=== PATIENT | female | born 1985 | race Caucasian/White ===

== ENCOUNTER 2016-08-18 20:52 | Emergency (ER) | payer OTHER ==
--- NOTE | 2016-08-18 23:24 | DIAGNOSTIC IMAGING REPORT ---
PROCEDURE: ABDOMEN/PELVIS WITH CONTRAST CLINICAL INDICATION: ABDOMINAL PAIN TECHNIQUE: 125 ml of Isovue 300 were injected intravenously and axial images were obtained of the abdomen and pelvis with sagittal and coronal reformations. COMPARISON: None. FINDINGS: ABDOMEN: Surgical changes of gastric sleeve formation. No perigastric fluid or inflammation. Mild diffuse periportal edema. Otherwise normal liver. Clear lung bases. Normal sized heart. No hiatal hernia. The gallbladder, adrenal glands, kidneys, pancreas and spleen are normal. The abdominal aorta is normal in its course and caliber. No atherosclerosis. There are no suspicious calcifications, retroperitoneal adenopathy or masses. The stomach, upper bowel loops, and mesentery are normal. Intact anterior abdominal wall. No free fluid or inflammation. PELVIS: The appendix and pelvic small bowel loops are normal. Normal amount of stool in the colon and rectum. The ovaries demonstrate multiple follicles bilaterally and are mildly enlarged measuring 4.4 cm on the right and 4.8 cm on the left. The uterus is deviated towards the right. The urinary bladder, and pelvic vessels are normal. No adenopathy, free fluid, or pelvic mass. Intact osseous structures. IMPRESSION: 1. No acute process. 2. Mild periportal edema, nonspecific. Correlate with LFTs. 3. Mildly enlarged, multifollicular ovaries without adjacent free fluid, likely physiologic. Correlate with any lower abdominal/pelvic pain. 4. Status post gastric sleeve formation. 5. Findings called to the emergency room. All CT scans at this facility use dose modulation, iterative reconstruction, and/or weight-based dosing when appropriate to reduce radiation dose to as low as reasonably achievable.
--- NOTE | 2016-08-18 23:39 | ED CLINICAL REPORT ---
Clinical Report - Physicians/Mid Levels [facility] [address] [place] [address] 08/18/2016 20:53 Patient: KATIE MOCTEZUMA Time Seen: 2110. Arrived- By private vehicle. Historian- patient. HISTORY OF PRESENT ILLNESS Chief Complaint: VOMITING. This started past 2 weeks and is still present (unchanged). It was abrupt in onset and has been intermittent but is not gone now. No recent travel. She has had nausea and vomiting. No black stools, bloody stools, abdominal pain, history of possible bad food exposure or known contact with a sick individual. Has not recently been camping or on antibiotics. The illness is described as moderate. Similar symptoms previously: None. Recent medical care: Not recently seen/assessed. REVIEW OF SYSTEMS No fever. All systems otherwise negative, except as recorded above. PAST HISTORY See nurses notes. Medications: Ranitidine HCl Oral. Multivitamin Oral. Promethazine HCl Oral, 4x a day. TraZODone HCl Oral 50 mg, daily. Allergies: Adhesive. Codeine. Paxil. SOCIAL HISTORY Never smoker. No alcohol use or drug use. No recent travel. Is a local resident. ADDITIONAL NOTES The nursing notes have been reviewed. PHYSICAL EXAM Vital Signs: 08/18/2016 20:59 BP: 123/65. HR: 70. RR: 18. O2 saturation: 98%. Temp: 98.1 F. Pain level now: 0/10. Blood pressure normal. Oxygen saturation normal. Appearance: Alert. Oriented X3. No acute distress. (non-toxic.). Eyes: Pupils equal, round and reactive to light. Eyes normal inspection. No scleral icterus. ENT: Ears normal. Nose normal. Pharynx normal. Neck: Normal inspection. Neck supple. CVS: Normal heart rate and rhythm. Heart sounds normal. Pulses normal. Respiratory: No respiratory distress. Breath sounds normal. No rales, rhonchi or wheezes. Abdomen: Soft and nontender. Bowel sounds normal. Skin: Skin warm and dry. Normal skin color. No rash. Normal skin turgor. Extremities: Extremities exhibit normal ROM. No lower extremity edema. LABS, X-RAYS, AND EKG Abdominal CT: PROCEDURE: ABDOMEN/PELVIS WITH CONTRAST CLINICAL INDICATION: ABDOMINAL PAIN TECHNIQUE: 125 ml of Isovue 300 were injected intravenously and axial images were obtained of the abdomen and pelvis with sagittal and coronal reformations. COMPARISON: None. FINDINGS: ABDOMEN: Surgical changes of gastric sleeve formation. No perigastric fluid or inflammation. Mild diffuse periportal edema. Otherwise normal liver. Clear lung bases. Normal sized heart. No hiatal hernia. The gallbladder, adrenal glands, kidneys, pancreas and spleen are normal. The abdominal aorta is normal in its course and caliber. No atherosclerosis. There are no suspicious calcifications, retroperitoneal adenopathy or masses. The stomach, upper bowel loops, and mesentery are normal. Intact anterior abdominal wall. No free fluid or inflammation. PELVIS: The appendix and pelvic small bowel loops are normal. Normal amount of stool in the colon and rectum. The ovaries demonstrate multiple follicles bilaterally and are mildly enlarged measuring 4.4 cm on the right and 4.8 cm on the left. The uterus is deviated towards the right. The urinary bladder, and pelvic vessels are normal. No adenopathy, free fluid, or pelvic mass. Intact osseous structures. IMPRESSION: 1. No acute process. 2. Mild periportal edema, nonspecific. Correlate with LFTs. 3. Mildly enlarged, multifollicular ovaries without adjacent free fluid, likely physiologic. Correlate with any lower abdominal/pelvic pain. 4. Status post gastric sleeve formation. Study type: abdomen and pelvis. Abdominal CT performed with IV contrast. The study was independently viewed by me, interpreted by the radiologist and discussed with the radiologist. Laboratory Tests: UA-Culture if indicated: (AVERY: 08/18/2016 21:21) ( MsgRcvd 08/18/2016 21:59) Final results Test Result Flag Units (Reference) URINE COLOR YELLOW URINE APPEARANCE CLEAR URINE GLUCOSE NEGATIVE (NEGATIVE) URINE BILIRUBIN NEGATIVE (NEGATIVE) URINE KETONE TRACE (NEGATIVE) URINE SPECIFIC GRAVITY 1.010 (1.010-1.030) URINE PH 6.0 (5.0-8.0) URINE PROTEIN NEGATIVE (NEGATIVE) URINE UROBILINOGEN 0.2 EU/dL (0.2-1.0) URINE NITRITE NEGATIVE (NEGATIVE) URINE BLOOD NEGATIVE (NEGATIVE) URINE LEUK ESTERASE NEGATIVE (NEGATIVE) URINE RBC NONE SEEN rbc/hpf (0-1) URINE WBC 0-1 wbc/hpf (0-1) URINE EPITHELIAL CELLS 1-3 EPI/hpf (0-5) URINE BACTERIA FEW (1+) (NONE SEEN) URINE COMMENT CULT NOT INDICATED 1+ MUCUSURINE CULTURES ARE SET-UP BASED ON THE FOLLOWING CRITERIA:POSITIVE NITRITEPOSITIVE LEUKOCYTE ESTERASEGREATER THAN 10 WHITE BLOOD CELLSMODERATE (2+) OR GREATER BACTERIA Urine: (AVERY: 08/18/2016 21:21) ( [facility] 08/18/[facility] 21:40) Final results Test Result Flag Units (Reference) URINE NEGATIVE CBC w Diff: (AVERY: 08/18/2016 21:21) ( [facility] 08/18/2016 21:44) Final results Test Result Flag Units (Reference) WHITE BLOOD COUNT 5.8 K/uL (4.5-11.5) RED BLOOD COUNT 4.16 M/uL (4.00-5.20) HEMOGLOBIN 12.5 gm/dL (12.0-16.0) HEMATOCRIT 37.4 % (36.0-46.0) MEAN CELL VOLUME 90 fL (80-100) MEAN CORPUSCULAR HGB 30 pg (26-34) MEAN CORPUSCULAR HGB CONC 33 g/dL (31-37) RED CELL DISTRIBUTION WIDTH 12.6 % (11.6-14.8) PLATELET COUNT 201 K/uL (150-400) NEUTROPHIL % 47.4 L % (50-75) LYMPH % 43.9 H % (25-40) MONO % 6.5 % (3-14) EOSINOPHIL % 1.9 % (0-4) BASOPHIL % 0.3 % (0-2) CMP: (AVERY: 08/18/2016 21:21) ( [facility] 08/18/2016 21:45) Final results Test Result Flag Units (Reference) GLUCOSE 89 mg/dL (70-110) BUN 10 mg/dL (7-18) CREATININE 0.7 mg/dL (0.6-1.3) Estimated GFR >60 mL/min Estimated GFR- >60 mL/min Note: Persistent reduction over 3 months in eGFR<60 mL/min/1.73 m2 defines CKD. Patients with eGFR values>=60 mL/min/1.73 m2 may also have CKD if evidence ofpersistent proteinuria. Additional information may be foundat [email or web address].org. SODIUM 140 mmol/L (136-145) POTASSIUM 3.6 mmol/L (3.5-5.1) CHLORIDE 104 mmol/L (98-107) CARBON DIOXIDE 29 mmol/L (21-32) CALCIUM 8.5 mg/dL (8.5-10.1) TOTAL PROTEIN 7.5 g/dL (6.4-8.2) ALBUMIN 4.2 g/dL (3.3-5.0) BILIRUBIN, TOTAL 0.4 mg/dL (0.0-1.0) ALKALINE PHOSPHATASE 63 U/L (46-116) AST (SGOT) 18 U/L (15-37) ALT (SGPT) 22 U/L (12-78) LIPASE 98 U/L (73-393) . PROGRESS AND PROCEDURES Course of Care: the patient is a pleasant 30-year-old female presented for evaluation of the nausea and vomiting without any abdominal pain. The patient is a bariatric surgery patient. Surgery had occurred about 6 years ago. Patient had contacted the clinic and was told to go to the emergency department. Patient will be evaluated with a CT scan of her abdomen and pelvis with contrast for evaluation of any signs of all of viscous perforation or surgical abdomen. Patient is agreeable to the treatment plan. No other abnormalities noted on patient's examination. The patient's workup was markable for the findings above. No findings noted on patient's CT scan of the abdomen and pelvis to indicate a surgical abdomen. No signs of cholecystitis. Laboratory studies are otherwise unremarkable. Because the patient had contacted her clinic and is a bar further input our advice on patient's symptoms here today. Was able to contact the on-call covering bariatric surgeon. No further recommendations made. Patient to follow up in clinic. Because of the patient's negative workup. Emergency department and no further recommendations made by the patient's covering bariatric surgeon, do not feel patient needs be admitted to the hospital require further emergency department workup/evaluation. Patient is resting in bed and in no acute distress. Symptoms here in the Emergency department. I discussion with the patient regards her symptoms in the emergency department including diagnosis, home care, follow-up, and return precautions. All questions have been answered. The patient expressed understanding of these instructions and was agreeable to them. Consult obtained. Chinmay Hamm (bariatric surgery). Phone consult only. Disposition: Discharged. Condition: good. CLINICAL IMPRESSION Vomiting with nausea. Moderate dehydration (acute). INSTRUCTIONS Warnings: GENERAL WARNINGS: Return or contact your physician immediately if your condition worsens or changes unexpectedly, if not improving as expected, or if other problems arise. SPECIFICALLY, return if you develop pain, fever, vomiting, the inability to keep fluids down, blood in vomitus, blood in diarrhea, fainting or lightheadedness. Your Current Medications: CONTINUE TAKING THE FOLLOWING MEDICATIONS: Multivitamin Oral. Promethazine HCl Oral : 4x a day. Ranitidine HCl Oral. TraZODone HCl Oral : 50 mg daily. Prescription Medications: Reglan 10 mg tablets: take 1 orally every 8 hours as needed for nausea or vomiting. Dispense twenty (20). No refills. Substitution is permissible. Follow-up: Return to the emergency department as needed. Follow up with your doctor in three days. Reason for referral: recheck today's concerns. Summary of care provided to patient via paper. Follow up with your doctor in three. Reason for referral: recheck today's concerns. Summary of care provided to patient via paper. Screening today revealed the patient's blood pressure to be in the normal range. The patient should follow up with a primary care provider for blood pressure management. Understanding of the discharge instructions verbalized by patient. (Electronically signed by James Castrejon Dr. 08/21/2016 8:18)
--- NOTE | 2016-08-18 23:39 | ED ORDER SUMMARY ---
..... Patient: KATIE MOCTEZUMA OrderSheet [facility] VisitID: [id number] [address] [place] [address] 30y, F Registration Date/Time: 08/18/2016 ORDER SHEET Weight: 63.5 kg (stated) Allergies: Adhesive, Codeine, Paxil GENERAL ORDERS: CT Abd/Pel w Cont (No) (N/A) Urgent (21:08/18/2016 Abbey Gregory) (Ack 21:25 [facility] Deputy County Clerk) (23:09 Duc) CBC w Diff Urgent (21:08/18/2016 Abbey Gregory) (21:24 DDavis R.N.) CMP Urgent (21:08/18/2016 Abbey Gregory) (21:24 DDavis R.N.) UA-Culture if indicated Urgent (21:08/18/2016 Abbey Gregory) (21:24 DDavis R.N.) Lipase Urgent (21:08/18/2016 Abbey Gregory) (21:24 DDavis R.N.) Urine Urgent (21:08/18/2016 Abbey Gregory) (21:24 DDavis R.N.) Pulse oximeter (21:08/18/2016 Abbey Gregory) (21:24 DDavis R.N.) MEDICATION ORDERS: IV FLUIDS: IV NS : initial bolus 1000 mL (1000 mL/hr), then none - for X1 (NOW) (21:08/18/2016 Abbey Gregory) (Ack 21:24 DDavis R.N.) (21:32 DDavis R.N.) Reglan IV 10 mg (NOW) (21:23 08/18/2016 Abbey Gregory) (Ack 21:24 DDavis R.N.) (21:33 DDavis R.N.) IV NS : initial bolus 1000 mL (1000 mL/hr), then none - for X1 (NOW) (22:17 08/18/2016 Abbey Gregory) (22:17 DDavis R.N.) ORDER SHEET NOTES: [Electronically signed by Sunil Brown R.N. (00:02 08/19/2016)] [Electronically signed by James Castrejon Dr. (08:18 08/21/2016)] [Electronically locked/signed by Sunil Brown R.N. (00:02 08/19/2016)]
--- NOTE | 2016-08-18 23:39 | ED NURSING NOTES ---
Clinical Report - Nurses [facility] [address] [place] [address] 08/18/2016 20:53 [id number] Triage time 20:59. Acuity: LEVEL 3. Chief Complaint: NAUSEA and VOMITING. Alert. No acute distress. BALTAZAR COMA SCORE: [place] Coma Scale: 15- eyes open spontaneously (4); best verbal response- oriented x 4 (5); best motor response- obeys commands (6). --21:03 Sunil Brown R.N. 20:59 08/18/16. BP: 123/65. HR: 70. RR: 18 (regular and unlabored). O2 saturation: 98% on room air. Temp: 98.1 F (oral). Pain level now: 0/10. --21:03 Sunil Brown R.N. Weight: 63.5 kg stated. Height/Length: 66 inches Per Patient. BMI: 22.6. --20:59 Sunil Brown R.N. Medications Multivitamin Oral. Promethazine HCl Oral, 4x a day. TraZODone HCl Oral 50 mg, daily. --21:00 Sunil Brown R.N. Ranitidine HCl Oral. --21:01 Sunil Brown R.N. Allergies Adhesive. Codeine. Paxil. --21:00 Sunil Brown R.N. History Arrived by private vehicle. Historian: patient. Accompanied by friend. Onset. (2 weeks). SOCIAL HX: Never smoker. No alcohol use or drug use. ( Denies SI/HI, states that she feels safe at home.). ABUSE ASSESSMENT: No report of abuse. SELF HARM ASSESSMENT: A self harm assessment was performed. The patient answered "no" to the question "Do you have thoughts of harming or killing yourself?" and "Are you here because you tried to hurt yourself?". FALL RISK ASSESSMENT: Fall risk assessment completed. No fall risk identified. FUNCTIONAL ASSESSMENT: Functional assessment: no impairments noted. LEARNING NEEDS ASSESSMENT: The learning needs assessment revealed no barriers. SKIN INTEGRITY ASSESSMENT: Skin integrity risk assessment completed. No skin integrity risk identified. --21:03 Sunil Brown R.N. PROBLEMS: Substance Abuse. Constipation. Nausea. Anxiety Reaction. Dehydration. Back Pain. --21:01 Sunil Brown R.N. ADDITIONAL SURGERIES: Endometerosis surg.. Gastric sleeve surgery. Sinus Surgery. --21:01 Sunil Brown R.N. Interventions ID band on patient. To treatment room. --21:03 Sunil Brown R.N. PHYSICAL ASSESSMENT Ambulatory to room. GENERAL / NEURO / PSYCH: Alert. Oriented X 4. Appears in no acute distress. Appears anxious. Does not appear in pain. HEENT: Mucous membranes are pink. RESPIRATORY: Respirations not labored. CVS: Capillary refill less than 2 seconds. GI / : Abdomen soft and nontender. SKIN: Skin is warm and dry. --21:04 Sunil Brown R.N. ( She states that she is drinking and able to keep fluids down). --21:05 Sunil Brown R.N. Ambulatory to room. GENERAL / NEURO / PSYCH: Alert. Oriented X 4. Appears in no acute distress. ( see triage assessment). HEENT: Mucous membranes are pink. RESPIRATORY: Respirations not labored. CVS: Capillary refill less than 2 seconds. GI / : Abdomen soft and nontender. SKIN: Skin is warm and dry. --00:01 Sunil Brown R.N. NURSING PROGRESS NOTES Patient gowned. Reassurance given. Two patient identifiers checked. Call light placed in reach. Side rails up x 1. Bed placed in lowest position. Brakes of bed on. Patient ready for evaluation- chart flagged. Patient waiting for evaluation. --21:04 Sunil Brown R.N. 21:22 08/18/2016 Site #1 started via IV in the right antecubital space with an 20g angiocath, with aseptic technique and good blood return; one attempt. Blood drawn: rainbow set. Labeled in the presence of the patient and sent to the lab. Saline lock flushed with 10 mL saline. --21:32 Sunil Brown R.N. 21:29 08/18/2016 Started bag #1 1000 mL IV Fluids IV NS (Saline); at 1000 mL/hr over 1 hour(s) via site #1. Allergies verified and confirmed 5 rights. IV patency established. IV site checked: no pain, redness, or swelling. IV flushed thoroughly pre- and post-medication administration. Completed per protocol. --21:32 Sunil Brown R.N. 21:30 08/18/2016 Reglan (Metoclopramide HCl) IVP 10 mg given over 2 minute(s) via site #1. Allergies verified and confirmed 5 rights. IV patency established. IV site checked: no pain, redness, or swelling. IV flushed thoroughly pre- and post-medication administration. IVP given by RN. --21:33 Sunil Brown R.N. 21:33 08/18/16. HR: 76. O2 saturation: 100% on room air. --21:33 Sunil Brown R.N. Pulse oximeter placed on patient. --21:33 Sunil Brown R.N. 22:08/18/2016 Started bag #1 1000 mL IV Fluids IV NS (Saline); at 1000 mL/hr over 1 hour(s) via site #1. Allergies verified and confirmed 5 rights. IV patency established. IV site checked: no pain, redness, or swelling. IV flushed thoroughly pre- and post-medication administration. Completed per protocol. --22:17 Sunil Brown R.N. 22:17 08/18/2016 IV Fluids IV NS Discontinued: completed. Total amount infused: 1000 mL. IV patency established. IV site checked: no pain, redness, or swelling. IV flushed thoroughly. --22:17 Sunil Brown R.N. ( Patient states that her nausea is "a little better".). --22:17 Sunil Brown R.N. 23:20 08/18/2016 IV Fluids IV NS Discontinued: completed. Total amount infused: 1000 mL. IV patency established. IV site checked: no pain, redness, or swelling. IV flushed thoroughly. --00:01 Sunil Brown R.N. DISPOSITION / DISCHARGE Departure time: 23:58. Condition at departure: stable. No learning barriers present. Discharge instructions provided and reviewed with the patient and spouse. Reviewed warnings. Reviewed medication(s) side effects, precautions, dosing and course information. Prescription(s) given to the patient. Treatments reviewed. Reviewed referrals for followup. Patient and spouse verbalized understanding. Written instructions provided in Somali. The patient was discharged home and accompanied by spouse and and pet amy. She left the Emergency Department ambulatory and via private vehicle. Spouse driving. --23:59 Sunil Brown R.N. 23:57 08/18/16. BP: 106/58. RR: 18 (regular and unlabored). Pain level now: 0/10. --23:59 Sunil Brown R.N. 23:50 08/18/16. HR: 71. O2 saturation: 99% on room air. --23:59 Sunil Brown R.N. Locked/Released at 08/19/2016 0:02 by Sunil Brown R.N.
--- NOTE | 2016-08-18 23:39 | ED ORDER SUMMARY ---
..... Patient: KATIE MOCTEZUMA OrderSheet [facility] VisitID: [id number] [address] [place] [address] 30y, F Registration Date/Time: 08/18/2016 ORDER SHEET Weight: 63.5 kg (stated) Allergies: Adhesive, Codeine, Paxil GENERAL ORDERS: CT Abd/Pel w Cont (No) (N/A) Urgent (21:08/18/2016 Abbey Gregory) (Ack 21:25 [facility] Employee Benefits Manager) (23:09 Duc) CBC w Diff Urgent (21:08/18/2016 Abbey Gregory) (21:24 DDavis R.N.) CMP Urgent (21:08/18/2016 Abbey Gregory) (21:24 DDavis R.N.) UA-Culture if indicated Urgent (21:08/18/2016 Abbey Gregory) (21:24 DDavis R.N.) Lipase Urgent (21:08/18/2016 Abbey Gregory) (21:24 DDavis R.N.) Urine Urgent (21:08/18/2016 Abbey Gregory) (21:24 DDavis R.N.) Pulse oximeter (21:08/18/2016 Abbey Gregory) (21:24 DDavis R.N.) MEDICATION ORDERS: IV FLUIDS: IV NS : initial bolus 1000 mL (1000 mL/hr), then none - for X1 (NOW) (21:08/18/2016 Abbey Gregory) (Ack 21:24 DDavis R.N.) (21:32 DDavis R.N.) Reglan IV 10 mg (NOW) (21:23 08/18/2016 Abbey Gregory) (Ack 21:24 DDavis R.N.) (21:33 DDavis R.N.) IV NS : initial bolus 1000 mL (1000 mL/hr), then none - for X1 (NOW) (22:17 08/18/2016 Abbey Gregory) (22:17 DDavis R.N.) ORDER SHEET NOTES: [Electronically signed by Sunil Brown R.N. (00:02 08/19/2016)] [Electronically signed by James Castrejon Dr. (08:18 08/21/2016)] [Electronically locked/signed by Sunil Brown R.N. (00:02 08/19/2016)]
--- NOTE | 2016-08-21 08:19 | ED DISCHARGE INSTRUCTIONS ---
Patient: KATIE MOCTEZUMA General Instructions [facility] VisitID: [id number] [address] [place] [address] 30y, F Registration Date/Time: 08/18/2016 Vomiting with nausea. Moderate dehydration (acute). INSTRUCTIONS Warnings: GENERAL WARNINGS: Return or contact your physician immediately if your condition worsens or changes unexpectedly, if not improving as expected, or if other problems arise. SPECIFICALLY, return if you develop pain, fever, vomiting, the inability to keep fluids down, blood in vomitus, blood in diarrhea, fainting or lightheadedness. Your Current Medications: CONTINUE TAKING THE FOLLOWING MEDICATIONS: Multivitamin Oral. Promethazine HCl Oral : 4x a day. Ranitidine HCl Oral. TraZODone HCl Oral : 50 mg daily. Prescription Medications: Reglan 10 mg tablets: take 1 orally every 8 hours as needed for nausea or vomiting. Dispense twenty (20). No refills. Substitution is permissible. Follow-up: Return to the emergency department as needed. Follow up with your doctor in three days. Reason for referral: recheck today's concerns. Summary of care provided to patient via paper. Follow up with your doctor in three. Reason for referral: recheck today's concerns. Summary of care provided to patient via paper. Screening today revealed the patient's blood pressure to be in the normal range. The patient should follow up with a primary care provider for blood pressure management. Understanding of the discharge instructions verbalized by patient. ADDITIONAL INFORMATION Vomiting [6Yr-Adult] Vomiting is a common symptom that may be due to different causes. These include gastroenteritis ("stomach flu"), food poisoning and gastritis. There are other more serious causes of vomiting which may be hard to diagnose early in the illness. Therefore, it is important to watch for the warning signs listed below. The main danger from repeated vomiting is dehydration. This is due to excess loss of water and minerals from the body. When this occurs, body fluids must be replaced. Home Care: If symptoms are severe, rest at home for the next 24 hours. You may use acetaminophen (Tylenol) or ibuprofen (Motrin, Advil) to control fever, unless another medicine was prescribed. [NOTE : If you have chronic liver or kidney disease or ever had a stomach ulcer or GI bleeding, talk with your doctor before using these medicines.] (Aspirin should never be used in anyone under 18 years of age who is ill with a fever. It may cause severe liver damage.) Avoid tobacco and alcohol use, which may worsen your symptoms. If medicines for vomiting were prescribed, take as directed. Once vomiting stops, then follow these guidelines: During The First 12-24 Hours follow the diet below: FRUIT JUICES: Apple, grape juice, clear fruit drinks, and electrolyte replacement drinks. BEVERAGES: Soft drinks without caffeine; mineral water (plain or flavored), decaffeinated tea and coffee. SOUPS: Clear broth, consomm and bouillon DESSERTS: Plain gelatin, popsicles and fruit juice bars. As you feel better, you may add 6-8 ounces of yogurt per day. During The Next 24 Hours you may add the following to the above: Hot cereal, plain toast, bread, rolls, crackers Plain noodles, rice, mashed potatoes, chicken noodle or rice soup Unsweetened canned fruit (avoid pineapple), bananas Limit caffeine and chocolate. No spices or seasonings except salt. During The Next 24 Hours Gradually resume a normal diet, as you feel better and your symptoms lessen. Follow Up with your doctor as advised if you are not improving over the next 2-3 days. Get Prompt Medical Attention if any of the following occur: Constant right-sided lower abdominal pain or increasing general abdominal pain Continued vomiting (unable to keep liquids down) for 24 hours Frequent diarrhea (more than 5 times a day); blood (red or black color) or mucus in diarrhea Reduced urine output or extreme thirst Weakness, dizziness or fainting Unusually drowsy or confused Fever of 100.4F (38C) oral or higher, not better with fever medication Yellow color of the eyes or skin Dehydration (Adult) Dehydration occurs when your body loses too much fluid. This may be the result of vomiting a lot or from diarrhea,sweating a lot, or a high fever. It may also happen if you dont drink enough fluid when youre sick. Misuse of diuretics (water pills) can also be a cause. Symptoms include thirst and feeling dizzy, weak, fatigued, or very drowsy. The diet described below is usually enough to treat most cases. Sometimes you may needmedicine. Home Care Follow these guidelines for home care: Drink at least 12 8-ounce glasses of fluid every day to overcome the dehydration. Fluid may include water; orange juice; lemonade; apple, grape, and cranberry juice; clear fruit drinks; electrolyte replacement and sports drinks; and teas and coffee without caffeine. If you have been diagnosed with a kidney disease, ask your doctor how much and what types of fluids you should drink to prevent dehydration. If you have kidney disease, drinking too much fluid can cause it build up in the your body and be dangerous to your health. If you have fever, muscle aching, or headache from a viral syndrome, you may useacetaminophen or ibuprofen, unless another medicine was prescribed for this.If you have chronic liver or kidney disease or ever had a stomach ulcer or GI bleeding, talk with your doctor before using these medicines. Don't take aspirin if you are younger than 18 and are ill with a fever.Aspirin raises the chance forsevere liver injury. Follow-up care Follow up with your health care provider if you don't get better in the next 24 to 48 hours. When to seek medical care Get prompt medical attention if any of theseoccur: Continued vomiting (cant keep liquids down) Frequent diarrhea (more than 5 times a day); blood (red or black color) or mucus in diarrhea Blood in vomit or stool Swollen abdomen or increasing abdominal pain Weakness, dizziness, or fainting Unusually drowsy or confused Reduced urine output or extreme thirst Fever of 100.4 F (38 C) oral or higher that does not get better with fever medication Metoclopramide Hydrochloride Oral tablet What is this medicine? METOCLOPRAMIDE (met oh kloe PRA mide) is used to treat the symptoms of gastroesophageal reflux disease (GERD) like heartburn. It is also used to treat people with slow emptying of the stomach and intestinal tract. How should I use this medicine? Take this medicine by mouth with a glass of water. Follow the directions on the prescription label. Take this medicine on an empty stomach, about 30 minutes before eating. Take your doses at regular intervals. Do not take your medicine more often than directed. Do not stop taking except on the advice of your doctor or health home health aide caregiver. A special MedGuide will be given to you by the pharmacist with each prescription and refill. Be sure to read this information carefully each time. Talk to your engineering programmer regarding the use of this medicine in children. Special care may be needed. What side effects may I notice from receiving this medicine? Side effects that you should report to your doctor or health home health aide caregiver as soon as possible: allergic reactions like skin rash, itching or hives, swelling of the face, lips, or tongue abnormal production of milk in females breast enlargement in both males and females change in the way you walk difficulty moving, speaking or swallowing drooling, lip smacking, or rapid movements of the tongue excessive sweating fever involuntary or uncontrollable movements of the eyes, head, arms and legs irregular heartbeat or palpitations muscle twitches and spasms unusually weak or tired Side effects that usually do not require medical attention (report to your doctor or health home health aide caregiver if they continue or are bothersome): change in sex drive or performance depressed mood diarrhea difficulty sleeping headache menstrual changes restless or nervous What may interact with this medicine? acetaminophen cyclosporine digoxin medicines for blood pressure medicines for diabetes, including insulin medicines for hay fever and other allergies medicines for depression, especially an Monoamine Oxidase Inhibitor (MAOI) medicines for Parkinson's disease, like levodopa medicines for sleep or for pain tetracycline What if I miss a dose? If you miss a dose, take it as soon as you can. If it is almost time for your next dose, take only that dose. Do not take double or extra doses. Where should I keep my medicine? Keep out of the reach of children. Store at room temperature between 20 and 25 degrees C (68 and 77 degrees F). Protect from light. Keep container tightly closed. Throw away any unused medicine after the expiration date. What should I tell my health care provider before I take this medicine? They need to know if you have any of these conditions: breast cancer depression diabetes heart failure high blood pressure kidney disease liver disease Parkinson's disease or a movement disorder pheochromocytoma seizures stomach obstruction, bleeding, or perforation an unusual or allergic reaction to metoclopramide, procainamide, sulfites, other medicines, foods, dyes, or preservatives or trying to get breast-feeding What should I watch for while using this medicine? It may take a few weeks for your stomach condition to start to get better. However, do not take this medicine for longer than 12 weeks. The longer you take this medicine, and the more you take it, the greater your chances are of developing serious side effects. If you are an elderly patient, a female patient, or you have diabetes, you may be at an increased risk for side effects from this medicine. Contact your doctor immediately if you start having movements you cannot control such as lip smacking, rapid movements of the tongue, involuntary or uncontrollable movements of the eyes, head, arms and legs, or muscle twitches and spasms. Patients and their families should watch out for worsening depression or thoughts of suicide. Also watch out for any sudden or severe changes in feelings such as feeling anxious, agitated, panicky, irritable, hostile, aggressive, impulsive, severely restless, overly excited and hyperactive, or not being able to sleep. If this happens, especially at the beginning of treatment or after a change in dose, call your doctor. Do not treat yourself for high fever. Ask your doctor or health home health aide caregiver for advice. You may get drowsy or dizzy. Do not drive, use machinery, or do anything that needs mental alertness until you know how this drug affects you. Do not stand or sit up quickly, especially if you are an older patient. This reduces the risk of dizzy or fainting spells. Alcohol can make you more drowsy and dizzy. Avoid alcoholic drinks. You have been given the following additional information: Vomiting (6Y-Adult) Dehydration (Adult) Metoclopramide Hydrochloride Oral tablet (Electronically signed by James Castrejon Dr. 08/21/2016 8:18)
--- NOTE | 2016-08-21 08:19 | ED MAR SUMMARY ---
..... Medication Administration Record Merged With [facility] [address] [place] [address] Patient: KATIE MOCTEZUMA Visit ID: [id number] 30y, F Weight: 63.5 kg Height/Length: 66 in BMI: 22.6 ALLERGIES: Adhesive, Codeine, Paxil Start 21:29 08/18/2016 Sunil Brown R.N., Stop 22:08/18/2016 Sunil Brown R.N. Medication Administered: IV NS (SALINE), Dose: IV Fluids over 1 hour(s), Rate: 1000 mL/hr, Dispensed: 1000 mL bag, Site: #1 right AC. Medication Ordered: IV NS : initial bolus 1000 mL (1000 mL/hr), then none - for X1 (NOW). Given 21:30 08/18/2016 Sunil Brown R.N. Medication Administered: REGLAN [IVP] (METOCLOPRAMIDE HCL), Dose: 10 mg IVP over 2 minute(s), Site: #1 right AC. Medication Ordered: Reglan IV 10 mg (NOW). Start 22:17 08/18/2016 Sunil Brown R.N., Stop 23:20 08/18/2016 Sunil Brown R.N. Medication Administered: IV NS (SALINE), Dose: IV Fluids over 1 hour(s), Rate: 1000 mL/hr, Dispensed: 1000 mL bag, Site: #1 right AC. Medication Ordered: IV NS : initial bolus 1000 mL (1000 mL/hr), then none - for X1 (NOW).
--- NOTE | 2016-08-21 08:19 | ED MAR SUMMARY ---
..... Medication Administration Record [facility] [address] [place] [address] Patient: KATIE MOCTEZUMA Visit ID: [id number] 30y, F Weight: 63.5 kg Height/Length: 66 in BMI: 22.6 ALLERGIES: Adhesive, Codeine, Paxil Start 21:29 08/18/2016 Sunil Brown R.N., Stop 22:08/18/2016 Sunil Brown R.N. Medication Administered: IV NS (SALINE), Dose: IV Fluids over 1 hour(s), Rate: 1000 mL/hr, Dispensed: 1000 mL bag, Site: #1 right AC. Medication Ordered: IV NS : initial bolus 1000 mL (1000 mL/hr), then none - for X1 (NOW). Given 21:30 08/18/2016 Sunil Brown R.N. Medication Administered: REGLAN [IVP] (METOCLOPRAMIDE HCL), Dose: 10 mg IVP over 2 minute(s), Site: #1 right AC. Medication Ordered: Reglan IV 10 mg (NOW). Start 22:17 08/18/2016 Sunil Brown R.N., Stop 23:20 08/18/2016 Sunil Brown R.N. Medication Administered: IV NS (SALINE), Dose: IV Fluids over 1 hour(s), Rate: 1000 mL/hr, Dispensed: 1000 mL bag, Site: #1 right AC. Medication Ordered: IV NS : initial bolus 1000 mL (1000 mL/hr), then none - for X1 (NOW).
--- NOTE | 2016-08-21 08:19 | ED MED RECONCILIATION SUMMARY ---
Patient: KATIE MOCTEZUMA Medication Reconciliation Report [facility] VisitID: [id number] [address] [place] [address] 30y, F Registration Date/Time: 08/18/2016 Weight: 63.5 kg Height/Length: 66 in. BMI: 22.6 ALLERGIES: Adhesive, Codeine, Paxil The patient's Home Medications are listed below: CONTINUE TAKING THE FOLLOWING MEDICATIONS: Multivitamin Oral Promethazine HCl Oral, 4x a day Ranitidine HCl Oral TraZODone HCl Oral 50 mg, daily The source(s) of the original Home Medication information: Not obtained. The following Medications were given to the patient in the Emergency Department: IV NS IV Fluids bolus 0, then 1000 mL/hr, administered: 08/18/2016 9:29:00 PM Reglan [IVP] IVP 10 mg, administered: 08/18/2016 9:30:00 PM IV NS IV Fluids bolus 0, then 1000 mL/hr, administered: 08/18/2016 10:17:00 PM The following Medications were prescribed to the patient: Reglan 10 mg tablets: take 1 orally every 8 hours as needed for nausea or vomiting. Dispense twenty (20). No refills. Substitution is permissible. -- James Castrejon Dr.
--- NOTE | 2016-08-21 08:19 | ED MED RECONCILIATION SUMMARY ---
Patient: KATIE MOCTEZUMA Medication Reconciliation Report [facility] VisitID: [id number] [address] [place] [address] 30y, F Registration Date/Time: 08/18/2016 Weight: 63.5 kg Height/Length: 66 in. BMI: 22.6 ALLERGIES: Adhesive, Codeine, Paxil The patient's Home Medications are listed below: CONTINUE TAKING THE FOLLOWING MEDICATIONS: Multivitamin Oral Promethazine HCl Oral, 4x a day Ranitidine HCl Oral TraZODone HCl Oral 50 mg, daily The source(s) of the original Home Medication information: Not obtained. The following Medications were given to the patient in the Emergency Department: IV NS IV Fluids bolus 0, then 1000 mL/hr, administered: 08/18/2016 9:29:00 PM Reglan [IVP] IVP 10 mg, administered: 08/18/2016 9:30:00 PM IV NS IV Fluids bolus 0, then 1000 mL/hr, administered: 08/18/2016 10:17:00 PM The following Medications were prescribed to the patient: Reglan 10 mg tablets: take 1 orally every 8 hours as needed for nausea or vomiting. Dispense twenty (20). No refills. Substitution is permissible. -- James Castrejon Dr.
== END 2016-08-18 23:52 | disposition home or self-care (01) ==
LOC: ED SRH 20:52
DX: R11.2 Nausea with vomiting, unspecified (principal); E86.0 Dehydration; Z98.84 Bariatric surgery status; Z79.899 Other long term (current) drug therapy; Z88.5 Allergy status to narcotic agent; Z88.8 Allergy status to other drugs, medicaments and biological substances; Z91.048 Other nonmedicinal substance allergy status
CPT/HCPCS: 90004; 90100; 92235; 93070; 95059